=== PATIENT | female | born 1990 | race Caucasian/White ===

== ENCOUNTER → 2016-10-10 | Outpatient (CLI) | payer OTHER ==
[~2016-10-10] MED LIST: CLR10 PO; DIPH25CA5 PO; METH1TAB81 PO; MONT1TAB3 PO; ZNTT/150 PO
[2016-10-10 14:42] LABS: BASO % 0.7 %; BASO ABS # 0.05 K/uL (0-0.2); COMPLETE YES; EOS % 5.7 %; HEMATOCRIT 42.3 % (37-47); IG% 0.1 %; LYMPH % 30.8 %; LYMPH ABS # 2.25 K/uL (1.2-3.4); MEAN CELL VOLUME 86.3 fL (80-100); MEAN CORPUSCULAR HGB CONC 33.6 g/dl (32-36); MEAN PLATELET VOLUME 9.4 fL (7.4-10.4); MONO % 6.8 %; NEUT % 55.9 %; PLATELET COUNT 333 K/uL (130-400); WHITE BLOOD COUNT 7.31 K/uL (4.8-10.8)
[2016-10-10 14:50] LABS: BLOOD UREA NITROGEN 8 mg/dl (7-18); CARBON DIOXIDE 30 mmol/L (21-32); CHLORIDE 105 mmol/L (98-107); CREATININE 0.73 mg/dl (0.60-1.20); GLUCOSE 88 mg/dl (70-99); POTASSIUM 4.4 mmol/L (3.5-5.1); SODIUM 139 mmol/L (136-145)
== END | disposition home or self-care (01) ==
LOC: C.LAB1850 12:42
PROVIDERS: ATTEND Nurse Practitioner Adult Health
DX: J03.00 Acute streptococcal tonsillitis, unspecified (principal); Z87.09 Personal history of other diseases of the respiratory system

== ENCOUNTER → 2017-01-30 | Outpatient (CLI) | payer OTHER | END | disposition home or self-care (01) | LOC: C.LABSPEC 16:40 | PROVIDERS: ATTEND Nurse Practitioner Adult Health | DX: R21 Rash and other nonspecific skin eruption (principal) ==

== ENCOUNTER 2017-02-11 18:19 | Emergency (ER) | payer OTHER ==
[~2017-02-11] VITALS: Ht 177.8 cm; Wt 117.2 kg
[2017-02-11 18:38] VITALS: TEMP 36.7; Ht 177.8 cm; Wt 117.2 kg
[2017-02-11] MEDS ORDERED: METHYLPREDNISOLONE 125 MG VIAL IV STA (18:47)
--- NOTE | 2017-02-11 19:08 | EMERGENCY ROOM VISIT NOTE ---
History Report prepared by Aquiles: Fran Shah Under the Supervision of: Dr. Jason Carroll M.D. First contact with patient: 18:44 Chief Complaint: RASH Stated Complaint: HIVES History of Present Illness The patient is a 26 year old female who presents to the Emergency Room with complaints of worsening hives beginning two weeks ago. The patient states she was diagnosed with a staph infection on her hands just after the hives began. She reports she went to her PCP and was placed on Bactrim for 10 days and a steroid. The patient notes she just finished her antibiotics 3-4 days ago. She states she went back to her PCP since the medication did not help. The patient reports she started an allergy medication and Benadryl. She notes her face swelled up 3 days ago, and she was told to start taking the steroid again. The patient states her swelling and headache resolved after the steroid. She denies fevers, chills, changes in soap, detergent, being around someone sick, or new allergies. Source of History: patient Onset: two weeks ago Position: other (global) Timing: worsening Associated Symptoms: + headache, No fevers, No chills Note: Associated symptoms: swelling to the face Denies: changes in soap, detergent, being around someone sick, or new allergies Review of Systems See HPI for pertinent positives & negatives. A total of 10 systems reviewed and were otherwise negative. Past Medical & Surgical Medical Problems: (1) No Known Active Medical Problems Family History Patient reports no known family medical history. Social History Smoking Status: Never Smoker Marital Status: single Occupation Status: employed Current/Historical Medications Scheduled Diphenhydramine Hcl (Benadryl), 25 MG PO HS Loratadine (Claritin), 10 MG PO DAILY Methylprednisolone (Medrol), 4 MG PO TAPER UD Montelukast Sodium (Singulair), 10 MG PO DAILY Ranitidine (Zantac), 150 MG PO HS Allergies Coded Allergies: No Known Allergies (Unverified , 02/11/17) Physical Exam Vital Signs Date Time Temp Pulse Resp B/P (MAP) Pulse Ox O2 Delivery O2 Flow Rate FiO2 02/11/17 20:14 93 16 128/91 98 02/11/17 19:16 98 Room Air 02/11/17 18:38 36.7 102 20 136/76 97 Room Air Physical Exam General: Non-ill appearing young female in no acute distress. HEENT: Normal cephalic atraumatic. Pupils are equal round and reactive to light. Extraocular movements are intact. Oropharynx is pink with moist mucous membranes. No exudates. No swelling of the mouth lips or tongue. Neck: Supple with a midline trachea. No meningeal signs or stiffness, no JVD or bruits. No Stridor. Chest: Clear to auscultation bilaterally. No wheezes or rhonchi. No increased work of breathing. Heart: regular rate and rhythm. Abdomen: Soft nontender, nondistended without rebound guarding or rigidity. Extremities: No cyanosis clubbing or edema. No calf tenderness or assymetry Spine/Back. Non tender to palpation. No CVA tenderness Skin: Good turgor with diffuse red circular lesions - consistent with hives - more on the extremities. Neurologic exam: Cranial nerves two through 12 are intact. Motor and sensation are intact and symmetrical throughout. Medical Decision & Procedures ER Provider Diagnostic Interpretation: X-ray results as stated below per interpretation by me and the radiologist: CHEST ONE VIEW PORTABLE HISTORY: Atypical CHEST PAIN COMPARISON: None. FINDINGS: The lungs are clear. Cardiac silhouette is normal in size. No pleural effusions. No pneumothorax. IMPRESSION: No acute process. Electronically signed by: Henry Priest M.D. 02/11/2017 8:30 PM Dictated Date/Time: 02/11/2017 8:29 PM Laboratory Results 02/11/17 19:15 Red Blood Count 4.64, Mean Corpuscular Volume 88.1, Mean Corpuscular Hemoglobin 29.3, Mean Corpuscular Hemoglobin Concent 33.3, Mean Platelet Volume 9.6, Neutrophils (%) (Auto) 75.4, Lymphocytes (%) (Auto) 18.6, Monocytes (%) (Auto) 5.3, Eosinophils (%) (Auto) 0.3, Basophils (%) (Auto) 0.1, Neutrophils # (Auto) 11.72, Lymphocytes # (Auto) 2.89, Monocytes # (Auto) 0.83, Eosinophils # (Auto) 0.04, Basophils # (Auto) 0.01 02/11/17 19:15 Test 02/11/17 18:58 02/11/17 19:15 Urine Color DK YELLOW Urine Appearance CLOUDY (CLEAR) Urine pH 5.0 (4.5-7.5) Urine Specific [place] 1.033 (1.000-1.030) Urine Protein NEG (NEG) Urine Glucose (UA) NEG (NEG) Urine Ketones TRACE (NEG) Urine Occult Blood NEG (NEG) Urine Nitrite NEG (NEG) Urine Bilirubin NEG (NEG) Urine Urobilinogen NEG (NEG) Urine Leukocyte Esterase TRACE (NEG) Urine WBC (Auto) 1-5 /hpf (0-5) Urine RBC (Auto) 0-4 /hpf (0-4) Urine Hyaline Casts (Auto) 1-5 /lpf (0-5) Urine Epithelial Cells (Auto) >30 /lpf (0-5) Urine Bacteria (Auto) NEG (NEG) Urine Crystals CALCIUM OXALATE (NONE Urine Mucus PRESENT (NONE PRSENT) Urine Test NEG (NEG) White Blood Count 15.54 K/uL (4.8-10.8) Red Blood Count 4.64 M/uL (4.2-5.4) Hemoglobin 13.6 g/dL (12.0-16.0) Hematocrit 40.9 % (37-47) Mean Corpuscular Volume 88.1 fL (80-100) Mean Corpuscular Hemoglobin 29.3 pg (25-34) Mean Corpuscular Hemoglobin Concent 33.3 g/dl (32-36) Platelet Count 383 K/uL (130-400) Mean Platelet Volume 9.6 fL (7.4-10.4) Neutrophils (%) (Auto) 75.4 % Lymphocytes (%) (Auto) 18.6 % Monocytes (%) (Auto) 5.3 % Eosinophils (%) (Auto) 0.3 % Basophils (%) (Auto) 0.1 % Neutrophils # (Auto) 11.72 K/uL (1.4-6.5) Lymphocytes # (Auto) 2.89 K/uL (1.2-3.4) Monocytes # (Auto) 0.83 K/uL (0.11-0.59) Eosinophils # (Auto) 0.04 K/uL (0-0.5) Basophils # (Auto) 0.01 K/uL (0-0.2) RDW Standard Deviation 38.8 fL (36.4-46.3) RDW Coefficient of Variation 12.2 % (11.5-14.5) Immature Granulocyte % (Auto) 0.3 % Immature Granulocyte # (Auto) 0.05 K/uL (0.00-0.02) Anion Gap 6.0 mmol/L (3-11) Est Creatinine Clear Calc Drug Dose 178.3 ml/min Estimated GFR () 141.6 Estimated GFR (Non- 122.2 BUN/Creatinine Ratio 19.1 (10-20) Calcium Level 8.8 mg/dl (8.5-10.1) Total Bilirubin 0.2 mg/dl (0.2-1) Direct Bilirubin < 0.1 mg/dl (0-0.2) Aspartate Amino Transf (AST/SGOT) 6 U/L (15-37) Alanine Aminotransferase (ALT/SGPT) 16 U/L (12-78) Alkaline Phosphatase 86 U/L (45-117) Total Protein 7.5 gm/dl (6.4-8.2) Albumin 3.8 gm/dl (3.4-5.0) Lipase 134 U/L (73-393) Laboratory studies as stated above per my review. Medications Administered Medications (Trade) Dose Ordered Sig/Hilda Route Start Time Stop Time Status Last Admin Dose Admin Methylprednisolone Sodium Succinate (Solu-Medrol IV) 125 mg NOW STAT IV 02/11/17 18:47 02/11/17 18:54 DC 02/11/17 19:16 125 MG ED Course 1843: Past medical records reviewed. The patient was evaluated in room B09, and a complete history and physical examination were performed. 1846: Ordered Solu-Medrol IV 125mg IV 2053: Upon reevaluation, the patient is resting comfortably. I discussed the results and treatment plan with her. She verbalized agreement of the treatment plan. The patient was discharged home. Medical Decision Differentials include, but are not limited to; hives, viral illness, erythema multiforme, Jose Maximo Disease. Medication Reconcilliation Current Medication List: was personally reviewed by me Blood Pressure Screening Patient's blood pressure: Normal blood pressure Blood pressure disposition: Did not require urgent referral Impression Primary Impression: Hives Scribe Attestation The scribe's documentation has been prepared under my direction and personally reviewed by me in its entirety. I confirm that the note above accurately reflects all work, treatment, procedures, and medical decision making performed by me. Departure Information Dispostion Home / Self-Care Referrals Yumi Wells CRNP (PCP) Forms HOME CARE DOCUMENTATION FORM, IMPORTANT VISIT INFORMATION, WORK / SCHOOL INSTRUCTIONS Patient Instructions My [facility] Additional Instructions Rest. Drink plenty of fluids. 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
[2017-02-11 19:16] VITALS: O2SAT 98
[2017-02-11 19:36] LABS: URINE APPEARANCE CLOUDY (CLEAR); URINE BILIRUBIN NEG (NEG); URINE COLOR DK YELLOW; URINE EPITHELIAL CELL AUTO >30 /lpf (0-5); URINE NITRITE NEG (NEG); URINE SPECIFIC GRAVITY 1.033 (1.000-1.030); UROBILINOGEN NEG (NEG)
[2017-02-11 19:38] LABS: MANUAL MICROSCOPIC REQUIRED? NO; REVIEW REQ? YES
[2017-02-11] MEDS ORDERED: METH1TAB81 PO (19:46)
[2017-02-11] MEDS ORDERED: MONT1TAB3 PO (19:46)
[2017-02-11] MEDS ORDERED: CLR10 PO (19:46)
[2017-02-11] MEDS ORDERED: BND25 PO (19:46)
[2017-02-11] MEDS ORDERED: ZNTT/150 PO (19:46)
[2017-02-11 19:48] LABS: URINE MUCUS PRESENT (NONE PRSENT)
[2017-02-11 19:49] LABS: ALT/SGPT 16 U/L (12-78); BLOOD UREA NITROGEN 13 mg/dl (7-18); BUN/CREATININE RATIO 19.1 (10-20); CALCIUM 8.8 mg/dl (8.5-10.1); CARBON DIOXIDE 26 mmol/L (21-32); CHLORIDE 107 mmol/L (98-107); CREATININE 0.67 mg/dl (0.60-1.20); GLUCOSE 102 mg/dl (70-99); POTASSIUM 3.7 mmol/L (3.5-5.1); SODIUM 139 mmol/L (136-145)
[2017-02-11 19:52] LABS: ALKALINE PHOSPHATASE 86 U/L (45-117); AST/SGOT 6 U/L (15-37)
[2017-02-11 20:04] LABS: BASO % 0.1 %; BASO ABS # 0.01 K/uL (0-0.2); COMPLETE YES; EOS % 0.3 %; HEMATOCRIT 40.9 % (37-47); IG% 0.3 %; LYMPH % 18.6 %; LYMPH ABS # 2.89 K/uL (1.2-3.4); MEAN CELL VOLUME 88.1 fL (80-100); MEAN CORPUSCULAR HEMOGLOBIN 29.3 pg (25-34); MEAN CORPUSCULAR HGB CONC 33.3 g/dl (32-36); MEAN PLATELET VOLUME 9.6 fL (7.4-10.4); MONO % 5.3 %; NEUT % 75.4 %; PLATELET COUNT 383 K/uL (130-400); RED BLOOD COUNT 4.64 M/uL (4.2-5.4); WHITE BLOOD COUNT 15.54 K/uL (4.8-10.8)
--- NOTE | 2017-02-11 20:31 | DIAGNOSTIC IMAGING REPORT ---
CHEST ONE VIEW PORTABLE HISTORY: Atypical CHEST PAIN COMPARISON: None. FINDINGS: The lungs are clear. Cardiac silhouette is normal in size. No pleural effusions. No pneumothorax. IMPRESSION: No acute process. Electronically signed by: Henry Priest M.D. 02/11/2017 8:30 PM Dictated Date/Time: 02/11/2017 8:29 PM
[2017-02-11 21:11] VITALS: BP 128/97; PULSE 97; O2SAT 98
== END 2017-02-11 21:14 | disposition home or self-care (01) ==
LOC: C.EDB 18:19
DX: L50.9 Urticaria, unspecified (principal); Z79.899 Other long term (current) drug therapy

== ENCOUNTER → 2017-05-26 | Outpatient (CLI) | payer OTHER | END | disposition home or self-care (01) | LOC: C.LAB1850 15:03 | PROVIDERS: ATTEND Internal Medicine Pulmonary Disease | DX: J30.9 Allergic rhinitis, unspecified (principal); H10.10 Acute atopic conjunctivitis, unspecified eye; J02.9 Acute pharyngitis, unspecified ==

== ENCOUNTER → 2017-06-16 | Outpatient (CLI) | payer OTHER ==
[~2017-06-16] MED LIST changes: +RANI150T85 PO; -ZNTT/150 PO
--- NOTE | 2017-06-16 13:00 | DIAGNOSTIC IMAGING REPORT ---
RIGHT FOOT 3 VIEWS CLINICAL HISTORY: Right foot injury. FINDINGS: 3 views of the right foot are obtained. No prior studies are available for comparison at the time of dictation. The skeletal structures are well mineralized. No fracture is seen. The joint spaces of the foot are well-maintained. There is no radiographic evidence of Lisfranc injury. There is a tiny dorsal calcaneal enthesophyte. Mild soft tissue swelling is suggested along the dorsal aspect of the foot. IMPRESSION: Soft tissue swelling with no fracture identified. Electronically signed by: Osvaldo Rossi M.D. 06/16/2017 12:59 PM Dictated Date/Time: 06/16/2017 12:57 PM
== END | disposition home or self-care (01) ==
LOC: C.LAB1850 12:07
PROVIDERS: ATTEND Nurse Practitioner Adult Health
DX: S99.921A Unspecified injury of right foot, initial encounter (principal); X58.XXXA Exposure to other specified factors, initial encounter